=== PATIENT | female | born 1970 | race Caucasian/White ===

== ENCOUNTER 2016-10-14 06:57 | Day surgery (SDC) | payer BC ==
[~2016-10-14] VITALS: Ht 152.4 cm; Wt 93.9 kg
--- NOTE | ~2016-10-14 | CATH ---
Cardiac Diagnostic Report Demographics Patient Name NAE Gaffney Gender Female Date of 1970 Age 46 year(s) Patient Number [id number] Date of Study 10/14/2016 Visit Number [id number] Room Number Corporate ID Ht 152.4 cm Wt 93.44 kg Accession Number [id number] BSA 1.89 m kg/m Referring Kaye Patel Primary Physician Physician REYNOLD Richter Performing Mei ANDERSON Secondary Physician Physician Rober Diagnostic Mei ANDERSON Assisting Physician Physician Rober Interventional Mei ANDERSON Physician Community Theater Actor Physician Rober Findings and Conclusions Diagnostic Findings and Conclusion Non- obstructive CAD Small vessel disease in small branch vessels Normal LVEDP Diagnostic Recommendations Medical management Procedure Description The patient was brought to the diagnostic cardiac catheterization laboratory in the fasting, non-sedated state. Informed consent was obtained in the written and verbal form after the risks and benefits were explained. The patient had no further questions and agreed to proceed. The planned puncture-incision site(s) were clipped and prepped with ChloraPrep and draped in the usual sterile manner. Conscious sedation, supplemental oxygen, and pain control medications were delivered by a registered nurse under physician guidance. Surface ECG rhythm, blood pressure measurement, and pulse oximetry were monitored throughout the procedure. Femoral approach was used due to unable to access RCA on previous heart cath from radial acesss. Arterial access. The right femoral access site was infiltrated with lidocaine. The vessel was entered with the Seldinger technique. A 6F sheath was advanced into the vessel and used for catheter placement. Selective left coronary angiography. A JL4 catheter was advanced into the left coronary vessel ostium under Fluoroscopic guidance. Contrast was injected by hand. Images were obtained in multiple projections. Selective right coronary angiography. A JR4 catheter was advanced into the right coronary vessel ostium under fluoroscopic guidance. Contrast was injected by hand. Images were obtained in multiple projections. Left heart catheterization. An angled pigtail catheter was advanced across the aortic valve to the left ventricle under fluoroscopic guidance. Resting hemodynamics were obtained. LV pressure was obtained. The catheter was gradually withdrawn into the aorta with continuous pressure recording. Arterial artery hemostasis was achieved. The patient was transferred to a regular nursing floor via cart accompanied by a nurse. The patient left the laboratory in stable condition. Procedure Procedure Type Diagnostic procedure:Angiography:, Coronary Angios w/[facility] Indications: Unstable angina, CAD, Hyperlipidemia, Hypertension and Diabetes. The procedure was explained in detail to the patient. Risks, complications and alternative treatments were reviewed. Written consent was obtained. Medications Reviewed with Patient prior to Procedure. Complications: No Complication. Angiographic Findings Dominance: Right Cardiac Arteries and Lesion Findings LMCA: Normal (0% Stenosis). LAD: Abnormal. Lesion on Mid LAD: Mid subsection.50% stenosis . Lesion on 1st Diag: Ostial.80% stenosis . Comments:Small vessel LCx: Normal (0% Stenosis). RCA: Abnormal. Lesion on Mid RCA: Ostial.50% stenosis . Pre procedure AMAYA III flow was noted. Comments:Prox supeior small branch Lesion on Prox RCA: Ostial.40% stenosis . Pre procedure AMAYA III flow was noted. Ramus: Abnormal. Lesion on Lat ramus: Mid subsection.80% stenosis . Pre procedure AMAYA III flow was noted. Comments:small Lesion on Ramus: Mid subsection.30% stenosis . Pre procedure AMAYA III flow was noted. Coronary Tree Procedure Data Procedure Date Date: 10/14/2016Start: 09:14 AMEnd: 09:52 AM Entry Locations - Retrograde Percutaneous access was performed through the Right Femoral artery. A 6 Fr sheath was inserted. Procedure Medications Order and Administration + + +-------+------+ !Time !Medication !Dosage !Route ! + + +-------+------+ !10/14/2016 09:13 AM !Versed !1 mg !I.V. ! + + +-------+------+ !10/14/2016 09:13 AM !Fentanyl !25 mcg ! ! + + +-------+------+ !10/14/2016 08:50 AM !Fentanyl !50 mcg !I.V. ! + + +-------+------+ !10/14/2016 08:50 AM !Versed !2 mg !I.V. ! + + +-------+------+ Devices Used - ACATH 6FR MULTIPACK CATHETERS. Comments: coronary angiograms. Contrast Material - Isovue 96686 ml Fluoroscopy Time: Diagnostic: 0:00 minutes. Total: 0:00 minutes. Medical History Allergies - Penicillin. Risk Factors The patient risk factors include:treated hypercholesterolemia, treated hypertension, insulin-treated diabetes mellitus, last creatinine: 0.9 mg/dl, creatinine clearance: 112.76 ml/min and dyslipidemia. Admission Data Admission Date: 10/14/2016 Admission Time: 06:57 AM Insurance Payors: Private health insurance. Clinical Evaluation Leading to Procedure Diagnosed on 10/12/2016 01:00 PM. - The patient's CAD presentation was assessed as: Unstable angina. - The patient's anginal syndrome during the past two weeks was assessed as: Class IV according to the [place] Cardi[employer] Classification System (CCS). Anti-anginal medications were prescribed during the past two weeks. The medications are: Beta Blockers, Ca channel Blockers and Long Acting Nitrates. Hemodynamics Condition: Rest O2 Consumption: Estimated: 187.66Heart Rate: 72 bpm Pressures (mmHg) +-----+ + !Site !Pressure ! +-----+ + !AO !144/55 (88) ! +-----+ + Shunts Oxygen Values O2 Consumption 187.66 Discharge Data Discharge Date: 10/14/2016 Hospital Status: Outpatient Signatures
--- NOTE | ~2016-10-14 | ECH ---
Transthoracic Echocardiography Report (TTE) Demographics Patient Name RAZIA SONI Date of Study 10/14/2016 Patient Number [id number] Visit Number [id number] Date of 1970 Room Number Accession Number [id number] Gender Female Age 46 year(s) Referring Kaye Dawna Jorge Car Dumper Crystal Malia [facility] Physician REYNOLD Richter Physician Interpreting Mei ANDERSON Safekeeping Clerk Physician Rober Supervising Ordering Physician Mei ANDERSON MD/CHEN Richter Nurse Stress Rehabilitation Services Coordinator Conclusions Contractility Score Summary Normal Left Ventricular contractility was noted. Summary Technically fair exam. The estimated left ventricular ejection fraction is 60-65%. Recommendation The patient will be given the results of this study by the physician who ordered the exam. Procedure Type of Study TTE procedure:Echo Complete SF. Procedure Date Date: 10/14/2016 Start: 08:19 AM Technical Quality: Fair due to body habitus. Indications:Chest pain and Shortness of breath. Appropriate Use Criteria: 9 Height: 60 inches Weight: 206 pounds BSA: 1.89 m Rhythm: Within normal limits HR: 65 bpm BP: 119/51 mmHg Allergies - Penicillin. M-Mode/2D Measurements LV Diastolic Dimension: 4.27 cm LV Systolic Dimension: 1.91 cm LV Septum Diastolic: 0.95 cm LV PW Diastolic: 0.74 cm AO Root Dimension: 2.05 cm Cardiac Output: 2.38 l/min LA Dimension: 3.6 cm Cardiac Index: 1.26 l/min*m RV Diastolic Dimension: 2.76 cm LA volume index: 24 ml/m LVOT: 1.48 cm LVOT VTI: 21.33 cm LV Stroke volume: 36.68 ml LV Stroke volume index: 19.41 ml/m Doppler Measurements AV Peak Velocity: 1.3 m/s MV Peak E-Wave: 0.86 m/s AV Peak Gradient: 6.76 mmHg MV Peak A-Wave: 0.64 m/s AV Mean Gradient: 4.01 mmHg MV E/A Ratio: 1.35 LVOT Peak Velocity: 0.79 m/s MV P1/2t: 52.9 msec AV Area (Continuity):1.31 cm MV Deceleration Time: 165.8 msec MV Area (PHT): 4.16 cm PV Peak Velocity: 0.97 m/s PV Peak Gradient: 3.75 mmHg RA Area: 11.03 cm Findings Left Ventricle The left ventricle is normal in size . Diastolic assessment reveals normal relaxation. Right Ventricle Right ventricle not well visualized. Left Atrium Normal left atrial size. Right Atrium Normal right atrial size. Mitral Valve Normal mitral valve structure and function. Aortic Valve Normal aortic valve structure and function. Tricuspid Valve Normal tricuspid valve structure and function. Pulmonic Valve The pulmonic valve is not well visualized. Pericardial Effusion No evidence of pericardial effusion. Miscellaneous Visualized portions of the aortic root and ascending aorta appear normal in size. Pleural Effusion No evidence of pleural effusion. Contractility Score LV regional wall motion:(0-Non visualized 1-Normal 2-Hypokinesis 3-Akinesis 4-Dyskinesis 5-Aneurysm) Signature
== END 2016-10-14 14:12 | disposition home or self-care (01) ==
LOC: SSS 06:57 → EDSTATUS 08:00 → CARD 08:00 → SSS 08:00
PROC: 4A023N7 Measurement of Cardiac Sampling and Pressure, Left Heart, Percutaneous Approach (ICD-10-PCS; principal; 2016-10-14)
DX: I25.110 Atherosclerotic heart disease of native coronary artery with unstable angina pectoris (principal); I10 Essential (primary) hypertension; E78.5 Hyperlipidemia, unspecified; Z82.49 Family history of ischemic heart disease and other diseases of the circulatory system; F41.9 Anxiety disorder, unspecified; F32.9 Major depressive disorder, single episode, unspecified; G47.33 Obstructive sleep apnea (adult) (pediatric); Z88.0 Allergy status to penicillin; E10.319 Type 1 diabetes mellitus with unspecified diabetic retinopathy without macular edema